=== PATIENT | male | born 1990 | race Caucasian/White ===

== ENCOUNTER → 2016-10-27 | Outpatient (CLI) | payer MEDICAID ==
[~2016-10-27] MED LIST: AMOXICILLIN 50500 MG PO; AMOXIL500 MG PO; BAYER ASPIRIN325 MG PO; MOTRIN800 MG PO; NAPROSYN 500MG500 MG PO; PEN-VK500 MG PO; ULTRACET 325 MG1 TAB PO; VICODIN 7.5/501 EACH PO; VISTARIL25 M1 PO
--- NOTE | 2016-10-27 17:24 | RADIOLOGY REPORT PS360 ---
US SCROTUM HISTORY: Left testicular swelling SCTROTAL SWELLING ORDERING PHYSICIAN: Page Watkins APRN PATIENT AGE: 25 years COMPARISON: None FINDINGS: RIGHT TESTICLE: The right testicle has an unremarkable appearance measuring 3.6 x 2 x 3.5 cm. No testicular mass, hydrocele, or spermatocele, or varicocele evident. Blood flow is noted to the right testicle. LEFT TESTICLE: The left testicle has an unremarkable appearance measuring3.5 x 2.6 x 3 cm. No mass, hydrocele, spermatocele, or varicocele evident. Blood flow is noted to the left testicle. Superior to the left testicle is fat within an inguinal hernia. There is also small amount fluid in what appears to represent peristalsing bowel within the hernia. Recommend CT of the abdomen and pelvis for confirmation. IMPRESSION: 1. Left inguinal hernia which does appear to contain bowel. Suggest confirmation with CT. 2. Otherwise negative testicular ultrasound
== END ==
LOC: RAD 12:09
DX: N50.89 Other specified disorders of the male genital organs (principal)

== ENCOUNTER 2016-11-28 21:34 | Emergency (ER) | payer MEDICAID ==
[~2016-11-28] VITALS: Ht 175.3 cm; Wt 68.6 kg
[2016-11-28] MEDS ORDERED: NOMEDS XX (21:47)
--- NOTE | 2016-11-28 22:34 | Emergency Room Report ---
History of Present Illness Time Seen by 401 Presenting Problem in Triage Pt arrived:Walked Presenting Problem:THINKS HE HAS BEEN HAVING PANIC ATTACKS, STATES HIS SPOUSE TOOK B/P AND WAS HIGH, DOESNT REMEMBER WHAT IT WAS. DIZZINESS, FEELS LIKE HE IS BREATHIN HEAVY. 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 N Clinical Suspician of Infection? N Mental Status: 2 - Mildly Altered Sepsis Risk:Low Sepsis Risk Have you (or family members/close friends) recently traveled outside the [place]? N If Yes, where/when: Have you had exposure to infectious disease within the past month? N TB? Other? Specify: Source patient, RN notes reviewed, old records Exam Limitations no limitations Comment pt with feeling of anxiety and presents for eval - nonspecific etiology and he has no suicidial thoughts Cardiac Chest Pain Chest pain indicative of cardiac No Timing/Duration this evening Severity moderate ALLERGIES Coded Allergies: No Known Allergies (11/11/16) Home Medications Active Scripts Penicillin V Potassium (Pen-Vk 500MG) 500 MG PO Q6 #40 TAB Prov: 04/29/14 Reported Medications Amoxicillin Trihydrate (Amoxicillin 500MG) 500 MG PO BID No Home Medications (NO HOME MEDICATIONS) 1 EACH XX ONCE History Medical History General CAD? No Angina: No NE: No Hypertension? No Hyperlipidemia? No CHF? No COPD? No Asthma? No Anemia? No Hernia? No Thyroid Problems? No CVA? No Seizures? No Diabetes? No End Stage Renal Disease? No UTI? No Stones? No GB Disease: No MRSA? No TB? No Cancer? No Immunization Hx DT/Tetanus UNKNOWN Surgical Hx Previous Surgery?N Social History Smoking Hx Smoker: Current Every Day Smoker Tobacco: Yes Type Cigarettes Packs/day 1 1/2 - 2 Packs Alcohol Alcohol: No Drugs none Additionial History Additional History also worried about his bp Review of Systems All Other Systems Reviewed and Negative Constitutional denies fever Eyes denies drainage ENT denies: ear pain, epistaxis, throat pain. Respiratory denies cough, denies shortness of breath, denies wheezing Cardiovascular denies chest pain, denies palpitations, denies syncope Gastrointestinal denies abdominal pain, denies diarrhea, denies vomiting Genitourinary denies: dysuria, frequency, hesitancy, hematuria. Musculoskeletal denies back pain, denies joint pain, denies joint swelling, denies neck pain Skin denies rash Psychiatric/Neurological see HPI, anxiety, denies seizure Physical Exam Vital Signs Vital Signs Date Time Temp Pulse Resp B/P Pulse O2 O2 Flow FiO2 Ox Delivery Rate 11/28 2136 98.5 87 20 133/98 97 - WBC >12,000 or <4,000 or 10% bands? 2 or more SIRS Criteria Met? B/P:133/98 MAP:109 Creatinine >2.0? UA output<0.5ml/kg/hr for 2 hrs? Platelet count >100,000? Lactate >2.0mmol/1? INR >1.2 or PTT > than 60 sec? Evidence of Organ Dysfunction? Provider documented clinical suspician of infection? N Sepsis Criteria Count: 1 Sepsis Risk: Low Sepsis Risk General Appearance no apparent distress Eye Exam - bilateral eye PERRL, bilateral eye EOMI Ear, Nose, Throat normal ENT inspection Neck supple Respiratory Status No: respiratory distress. Lung Sounds bilateral: lungs clear. Cardiovascular regular rate/rhythm, no gallop, no JVD, no murmur, no rub Peripheral Pulses Pulses normal Yes Gastrointestinal soft Extremities normal inspection Strength 4 Upper Ext (L), 4 Upper Ext (R), 4 Lower Ext (L), 4 Lower Ext (R) Neurologic alert, manager desktop II-XII nml as tested, no motor/sensory deficits Reflexes Reflexes normal Yes Mental status normal mood/affect, insight - fair Skin intact Medical Decision Making LABS/Meds/Orders Pt receiving controlled substance in ED? 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 of ischemic chgs Departure Departure Time of Disposition 2233 Disposition Against Medical Advice Clinical Impression Primary Impression: Anxiety Condition STABLE Patient Instructions DI for Anxiety -- Adult Additional Instructions see pcp for follow up Discharge Counseling Counseled pt/family regarding diagnosis, follow up needs ED Critical Care Critical Care No at [id number]
--- NOTE | 2016-11-28 22:34 | Emergency Room Report ---
History of Present Illness Time Seen by [id number] Presenting Problem in Triage Pt arrived:Walked Presenting Problem:THINKS HE HAS BEEN HAVING PANIC ATTACKS, STATES HIS SPOUSE TOOK B/P AND WAS HIGH, DOESNT REMEMBER WHAT IT WAS. DIZZINESS, FEELS LIKE HE IS BREATHIN HEAVY. 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 N Clinical Suspician of Infection? N Mental Status: 2 - Mildly Altered Sepsis Risk:Low Sepsis Risk Have you (or family members/close friends) recently traveled outside the [place]? N If Yes, where/when: Have you had exposure to infectious disease within the past month? N TB? Other? Specify: Source patient, RN notes reviewed, old records Exam Limitations no limitations Comment pt with feeling of anxiety and presents for eval - nonspecific etiology and he has no suicidial thoughts Cardiac Chest Pain Chest pain indicative of cardiac No Timing/Duration this evening Severity moderate ALLERGIES Coded Allergies: No Known Allergies (11/11/16) Home Medications Active Scripts Penicillin V Potassium (Pen-Vk 500MG) 500 MG PO Q6 #40 TAB Prov: 04/29/14 Reported Medications Amoxicillin Trihydrate (Amoxicillin 500MG) 500 MG PO BID No Home Medications (NO HOME MEDICATIONS) 1 EACH XX ONCE History Medical History General CAD? No Angina: No [place]: No Hypertension? No Hyperlipidemia? No CHF? No COPD? No Asthma? No Anemia? No Hernia? No Thyroid Problems? No CVA? No Seizures? No Diabetes? No End Stage Renal Disease? No UTI? No Stones? No GB Disease: No MRSA? No TB? No Cancer? No Immunization Hx DT/Tetanus UNKNOWN Surgical Hx Previous Surgery?N Social History Smoking Hx Smoker: Current Every Day Smoker Tobacco: Yes Type Cigarettes Packs/day 1 1/2 - 2 Packs Alcohol Alcohol: No Drugs none Additionial History Additional History also worried about his bp Review of Systems All Other Systems Reviewed and Negative Constitutional denies fever Eyes denies drainage ENT denies: ear pain, epistaxis, throat pain. Respiratory denies cough, denies shortness of breath, denies wheezing Cardiovascular denies chest pain, denies palpitations, denies syncope Gastrointestinal denies abdominal pain, denies diarrhea, denies vomiting Genitourinary denies: dysuria, frequency, hesitancy, hematuria. Musculoskeletal denies back pain, denies joint pain, denies joint swelling, denies neck pain Skin denies rash Psychiatric/Neurological see HPI, anxiety, denies seizure Physical Exam Vital Signs Vital Signs Date Time Temp Pulse Resp B/P Pulse O2 O2 Flow FiO2 Ox Delivery Rate 11/28 2136 98.5 87 20 133/98 97 - WBC >12,000 or <4,000 or 10% bands? 2 or more SIRS Criteria Met? B/P:133/98 MAP:109 Creatinine >2.0? UA output<0.5ml/kg/hr for 2 hrs? Platelet count >100,000? Lactate >2.0mmol/1? INR >1.2 or PTT > than 60 sec? Evidence of Organ Dysfunction? Provider documented clinical suspician of infection? N Sepsis Criteria Count: 1 Sepsis Risk: Low Sepsis Risk General Appearance no apparent distress Eye Exam - bilateral eye PERRL, bilateral eye EOMI Ear, Nose, Throat normal ENT inspection Neck supple Respiratory Status No: respiratory distress. Lung Sounds bilateral: lungs clear. 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 of ischemic chgs Departure Departure Time of Disposition 2233 Disposition Against Medical Advice Clinical Impression Primary Impression: Anxiety Condition STABLE Patient Instructions DI for Anxiety -- Adult Additional Instructions see pcp for follow up Discharge Counseling Counseled pt/family regarding diagnosis, follow up needs ED Critical Care Critical Care No at [phone]
[2016-11-28 23:43] VITALS: BP 125/77
--- OUTSIDE RECORDS SUMMARY | 2016-12-04 17:05 | External Medical Summary Rpt | CCD ---
Author Author , FIDENCIO NICOLAS Address Unknown Phone [email or web address] Care Team Providers Care Hair And Makeup Designer Name Role Phone [facility] Unavailable Unavailable [facility], [facility], Unavailable Unavailable [employer] [employer], Unavailable Unavailable [facility] [employer] Unavailable Unavailable [facility], [facility] Un[facility], [facility], Unavailable Unavailable [facility] CHAWLA, CHAWLA Unavailable Unavailable [facility] Unavailable Unavailable TENZIN I, [facility] TENZIN I [facility] Unavailable Unavailable TENZIN I, [facility] TENZIN I GOMEZ BENJAMIN, GOMEZ Unavailable Unavailable BENJAMIN TRUE LOPEZ, TRUE LOPEZ Unavailable Unavailable [facility], Unavailable Unavailable [facility] PJ PALMER, OLIVA Unavailable Unavailable ESTELA Purpose Continuity of Care Document - 03-23-2015 through 2016 Problems Code Diagnosis DOS Provider Status N5089 OTHER 10-27-2016 [facility] OF MALE GENITAL ORGANS Z113 ENCOUNTER 07-08-2016 [facility] INFECTIONS TENZIN I SEXL MODE TRANSMISSN V67660 OTHER LONG 06-13-2016 COMPLIANCE TERM ADVANTAGE CURRENT DRUG THERAPY S99027 PAIN IN 06-09-2016 [facility] RIGHT [facility]NEE [facility] INC [id number] PAIN IN 06-09-2016 [facility] LEFT KNEE STICS INC [id number] STRN UNS 05-08-2015 [place] [facility] M&[facility] SHLDR SERV UP ARM LEVL [facility] RT ARM INIT ENC Z049 ENCOUNTER 05-08-2015 [place] [facility] EXAMINATION SERV &OBSERVATIO [facility] N FOR UNS REASON K029 DENTAL 03-23-2015 [facility] UNSPECIFIED K040 PULPITIS 03-23-2015 [facility] Z720 TOBACCO USE 03-23-2015 [facility] Medications Na ND Rx Da Fi Fi Am Da Di Ph RX Ph St me C No te ll ll ou ys ag ar # ys at rm s nt no ma ic us Or Da si cy ia de te s n re d BU 00 09 09 14 7 00 CA Ac OH 05 -0 -2 .0 00 RL ti EN 40 1- 9- 00 00 IS ve OR 18 20 20 78 LE PH 91 17 [address] Saumya FAN AL S OX ON 8- 2 MG SL BU 00 08 09 14 7 00 CA Ac OH 05 -2 -2 .0 00 RL ti EN 40 6- 2- 00 00 IS ve OR 18 20 20 77 LE PH 91 17 [address] Saumya FAN AL S OX ON 8- 2 MG SL BU 00 07 07 28 14 00 CA Ac OH 05 -0 -2 .0 00 RL ti EN 40 3- 8- 00 00 IS ve OR 18 20 20 77 LE PH 91 17 17 [address] Saumya FAN AL S OX ON 8- 2 MG SL BU 00 04 05 14 7 00 KR Ac OH 22 -1 -1 .0 00 OG ti EN 83 5- 2- 00 04 ER ve OR 15 20 20 57 PH 57 17 17 92 PH IN 3 21 AR -N MA AL CY OX ON L4 07 8- 2 MG SL NA 65 04 05 60 30 00 WA Ac OH 16 -1 -0 .0 00 L ti OX 20 0- 5- 00 07 MA ve EN 19 20 20 49 RT 01 17 17 34 50 1 02 PH 0 AR MG MA CY TA BL 10 ET -2 78 3 CI 54 04 05 30 30 00 WA Ac TA 45 -1 -0 .0 00 L ti LO 80 0- 5- 00 07 MA ve OH 98 20 20 49 RT AM 01 17 17 34 0 03 PH HB AR R MA 20 CY MG 10 -2 TA 78 BL 3 ET HY 16 04 05 60 [address] 71 -1 -0 .0 00 L ti OX 40 0- 5- 00 07 MA ve YZ 08 20 20 49 RT IN 31 17 17 34 E 0 04 PH HC AR L MA 50 CY MG 10 -2 TA 78 BL 3 ET Results Labs Lab Lab Date Result Refere Interp Status Commen Order Detail nces retati t Range on Urinalysis dipstick W Reflex Microscopic panel in Urine (11-11-2016 08:00) Bacteri TRACE O complet a 017 ed [Presen 08:00 ce] in Urine sedimen t by Light microsc opy Mucus 2+ NONE complet [Presen 017 ed ce] in 08:00 Urine sedimen t by Light microsc opy Erythro OCC 0 complet cytes 017 ed [Presen 08:00 ce] in Urine sedimen t by Light microsc opy Epithel 11-11- OCC OCC complet ial 017 ed cells.s 08:00 quamous [Presen ce] in Urine sedimen t by Microsc opy high power field Urinalysis dipstick W Reflex Microscopic panel in Urine (11-11-2016 08:00) Appeara CLEAR CLEAR complet nce of 017 ed Urine 08:00 Bilirub NEGATIV NEG complet in 017 E ed [Presen 08:00 ce] in Urine by Test strip Erythro NEGATIV NEG complet cytes 017 E ed [Presen 08:00 ce] in Urine Color YELLOW YELLOW complet of 017 ed Urine 08:00 Ketones NEGATIV NEG complet 017 E ed [Presen 08:00 ce] in Urine by Automat ed test strip Mucus NEGATIV NEG complet [Presen 017 E ed ce] in 08:00 Urine sedimen t by Light microsc opy Nitrite NEGATIV NEG complet 017 E ed [Presen 08:00 ce] in Urine by Test strip Urobili 1.0 NEG complet nogen 017 ed [Presen 08:00 ce] in Urine by Test strip CHLAMYDIA AND GONORRHEA TESTING (07-08-2016 08:00) Chlamyd NEGATIV complet ia 017 E ed trachom 08:00 atis rRNA [Presen ce] in Unspeci fied specime n by Probe & target amplifi cation method Neisser NEGATIV complet ia 017 E ed gonorrh 08:00 oeae rRNA [Presen ce] in Unspeci fied specime n by Probe & target amplifi cation method CHLAMYDIA AND GONORRHEA TESTING (07-08-2016 08:00) COLLECT TV complet OR 017 ed 08:00 ETHNICI WHITE, complet TY 017 NON-HIS ed 08:00 PANIC KIT 31-2 complet EXPIRAT 017 017 ed ION 08:00 DATE SYMPTOM NO complet S 017 ed 08:00 REASON VOLUNTE complet FOR 017 ER/MEDI ed REQUEST 08:00 MALLORY PROBLEM SPECIME URINE complet N 017 ed SOURCE 08:00 PREGNAN NO complet T 017 ed 08:00 CHART [id number] complet NUMBER 017 ed 08:00 Chlamyd Pending complet ia 017 ed trachom 08:00 atis rRNA [Presen ce] in Unspeci fied specime n by Probe & target amplifi cation method Neisser Pending complet ia 017 ed gonorrh 08:00 oeae rRNA [Presen ce] in Unspeci fied specime n by Probe & target amplifi cation method Procedures Procedure DOS Code Location Performer Comment 63094 [facility] IADNA 00821 [facility] 7 DIAGNOSTI DIAGNOSTI CS CS VAGINALIS TENZIN TENZIN I I AMPLIFIED PROBE TECH DRUG TEST G0480 COMPLIANC COMPLIANC DEFINITV 7 E E ID ADVANTAGE ADVANTAGE METH P DAY 1-7 DRUG CL RADIOLOGI 12449 NE[facility]ODIAG [facility] C 7 NOSTICS EXAMINATI INC ON KNEE 3 VIEWS RADEX 14536 [place] TRUE LOPEZ SHOULDER 6 MEDICAL COMPLETE SERV MINIMUM 2 FOUNDATIO VIEWS N Encounters Encounter Start End Date Code Location Performer Type Date [facility]LA - 7 [facility] OUTPATIEN INC T EMERGENCY 18394 REBECCA GOMEZ 6 6 MEDICAL BENJAMIN DEPARTMEN SERV T VISIT FOUNDATIO MODERATE N SEVERITY EMERGENCY 93946 NAMRATA OLIVA 6 6 ANA ESTELA DEPARTMEN EMERGENCY T VISIT PHYS MODERATE SEVERITY EMERGENCY 06414 UNIVERSIT 6 6 Y [facility] T VISIT LOW/MODER SEVERITY [facility]
--- OUTSIDE RECORDS SUMMARY | 2016-12-04 17:05 | External Medical Summary Rpt | CCD ---
Author Author , FIDENCIO NICOLAS Address Unknown Phone [email or web address] Care Team Providers Care Interlibrary Loan Services Librarian Name Role Phone [facility] Unavailable Unavailable HEALTH C, [facility] [employer] [employer], Unavailable Unavailable [...] BENJAMIN TRUE LOPEZ, TRUE LOPEZ Unavailable Unavailable [facility], Unavailable Unavailable [facility] PJ PALMER, OLIVA Unavailable Unavailable ESTELA Purpose Continuity of Care Document - 03-23-2015 through 2016 Problems Code Diagnosis DOS Provider Status N5089 OTHER 10-27-2016 [facility] OF MALE GENITAL ORGANS Z113 ENCOUNTER 07-08-2016 [facility] INFECTIONS TENZIN I SEXL MODE TRANSMISSN Q04933 OTHER LONG 06-13-2016 COMPLIANCE TERM ADVANTAGE CURRENT DRUG THERAPY I06579 PAIN IN 06-09-2016 [facility] RIGHT [facility] INC V00823 PAIN IN 06-09-2016 [facility] LEFT KNEE STICS INC [id number] STRN UNS 05-08-2015 [place] [facility] M&T SHLDR SERV UP ARM LEVL [facility] RT ARM INIT ENC Z049 ENCOUNTER 05-08-2015 [place] [facility] EXAMINATION SERV &OBSERVATIO [facility] N FOR UNS REASON K029 DENTAL 03-23-2015 [facility]ICE UNSPECIFIED K040 PULPITIS 03-23-2015 [facility] Z720 TOBACCO USE 03-23-2015 [facility] Medications Na ND Rx Da Fi Fi Am Da Di Ph RX Ph St me C No te ll ll ou ys ag ar # ys at rm s nt no ma ic us Or Da si cy ia de te s n re d BU 00 09 09 14 7 00 CA Ac [place] 05 -0 -2 .0 00 RL ti EN 40 1- 9- 00 00 IS ve OR 18 20 20 78 LE PH 91 17 17 [address] Saumya FAN AL S OX ON 8- 2 MG SL BU 00 08 09 14 7 00 CA Ac WV 05 -2 -2 .0 00 RL ti EN 40 6- 2- 00 00 IS ve OR 18 20 20 77 LE PH 91 17 [address] Saumya FAN AL S OX ON 8- 2 MG SL BU 00 07 07 28 14 00 CA Ac WV 05 -0 -2 .0 00 RL ti EN 40 3- 8- 00 00 IS ve OR 18 20 20 77 LE PH 91 17 17 [address] Saumya FAN AL S OX ON 8- 2 MG SL BU 00 04 05 14 7 00 KR Ac WV 22 -1 -1 .0 00 OG ti EN 83 5- 2- 00 04 ER ve OR 15 20 20 57 PH 57 17 17 92 PH IN 3 21 AR -N MA AL CY OX ON L4 07 8- 2 MG SL NA 65 04 05 60 30 00 WA Ac WV 16 -1 -0 .0 00 L ti [...] 80 0- 5- 00 07 MA ve WV 98 20 20 49 RT AM 01 [...] NO complet T 017 ed 08:00 CHART [id number] complet NUMBER 017 ed 08:00 Chlamyd Pending complet ia 017 ed trachom 08:00 atis rRNA [Presen ce] in Unspeci fied specime n by Probe & target amplifi cation method Neisser Pending complet ia 017 ed gonorrh 08:00 oeae rRNA [Presen ce] in Unspeci fied specime n by Probe & target amplifi cation method Procedures Procedure DOS Code Location Performer Comment 10794 [facility] IADNA 60569 [facility] 7 DIAGNOSTI DIAGNOSTI CS CS VAGINALIS TENZIN TENZIN I I AMPLIFIED PROBE TECH DRUG TEST G0480 COMPLIANC COMPLIANC DEFINITV 7 E E ID ADVANTAGE ADVANTAGE METH P DAY 1-7 DRUG CL RADIOLOGI 30180 NEUR[facility]IAG [facility] C 7 NOSTICS EXAMINATI INC ON KNEE 3 VIEWS RADEX 97961 [place] TRUE LOPE[place] SHOULDER 6 MEDICAL COMPLETE SERV MINIMUM 2 FOUNDATIO VIEWS N Encounters Encounter Start End Date Code Location Performer Type Date [facility]LA - 7 [facility] HOSP OUTPATIEN INC T EMERGENCY 30562 REBECCA GOMEZ 6 6 MEDICAL BENJAMIN DEPARTMEN SERV T VISIT FOUNDATIO MODERATE N SEVERITY EMERGENCY 18915 NAMRATA OLIVA 6 6 ANA SETELA DEPARTMEN EMERGENCY T VISIT PHYS MODERATE SEVERITY EMERGENCY 08982 UNIVERSIT 6 6 Y [facility] T VISIT LOW/MODER SEVERITY [facility]PITAL [facility]
--- OUTSIDE RECORDS SUMMARY | 2016-12-04 17:06 | External Medical Summary Rpt | CCD ---
Demographics Preferred Language Lao Marital Status Unknown Rastafari Affiliation Unknown Race Unknown Ethnic Group Unknown Author Author , AGUSTINA NICOLAS Address Unknown Phone Immunization Unable to retrieve immunization data due to connection failure with Immunization Registry. Please try again later.
--- OUTSIDE RECORDS SUMMARY | 2016-12-04 17:06 | External Medical Summary Rpt | CCD ---
Author Author , FIDENCIO NICOLAS Address Unknown Phone [email or web address] Care Team Providers Care Instructor Substitute Cosmetology Name Role Phone [facility] Unavailable Unavailable [facility], [facility] COMPLIANCE ADVANTAGE, Unavailable [...] BENJAMIN TRUE LOPEZ, TRUE LOPEZ Unavailable Unavailable [facility], Unavailable Unavailable [facility] PJ PALMER, PJ Unavailable Unavailable ESTELA Purpose Continuity of Care Document - 03-23-2015 through 2016 Problems Code Diagnosis DOS Provider Status N5089 OTHER 10-27-2016 [facility] SPECIFIED [facility] OF MALE GENITAL ORGANS Z113 ENCOUNTER 07-08-2016 [facility] INFECTIONS TENZIN I SEXL MODE TRANSMISSN S82416 OTHER LONG 06-13-2016 COMPLIANCE TERM ADVANTAGE CURRENT DRUG THERAPY A14366 PAIN IN 06-09-2016 [facility] RIGHT KNEE STICS INC S94585 PAIN IN 06-09-2016 [facility]URODIAGNO LEFT KNEE STICS INC [id number] STRN UNS 05-08-2015 [facility] SHLDR SERV UP ARM [facility]EVL [facility] RT ARM INIT ENC Z049 ENCOUNTER 05-08-2015 [facility] EX[facility] &OBSERVATIO [facility] N FOR UNS REASON K029 DENTAL 03-23-2015 [facility] UNSPECIFIED K040 PULPITIS 03-23-2015 [facility] Z720 TOBACCO USE 03-23-2015 [facility] Medications Na ND Rx Da Fi Fi Am Da Di Ph RX Ph St me C No te ll ll ou ys ag ar # ys at rm s nt no ma ic us Or Da si cy ia de te s n re d BU 00 09 09 14 7 00 CA Ac [place] 05 -0 -2 .0 00 RL ti EN 40 03-02- 00 00 IS ve OR 18 20 20 78 LE PH 91 17 17 [address] Saumya UG AL S OX ON 8- 2 MG SL BU 00 08 09 14 7 00 CA Ac [place] 05 -2 -2 .0 00 RL ti EN 40 6- 2- 00 00 IS ve OR 18 20 20 77 LE PH 91 17 [address] Kerns UG AL S OX ON 8- 2 MG SL BU 00 07 07 28 14 00 CA Ac [place] 05 -0 -2 .0 00 RL ti EN 40 3- 8- 00 00 IS ve OR 18 20 20 77 LE PH 91 17 17 [address] Saumya FAN AL S OX ON 8- 2 MG SL BU 00 04 05 14 7 00 KR Ac [place] 22 -1 -1 .0 00 OG ti EN 83 5- 2- 00 04 ER ve OR 15 20 20 57 PH 57 17 17 92 PH IN 3 21 AR -N MA AL CY OX ON L4 07 8- 2 MG SL NA 65 04 05 60 30 00 WA Ac [place] 16 -1 -0 .0 00 L ti [...] 80 0- 5- 00 07 MA ve [place] 98 20 20 49 RT AM 01 [...] 10 -2 TA 78 BL 3 ET Procedures Procedure [place] [address] KARLA ACOSTA SCROTUM & 7 [facility] CONTENTS [facility] INC IADNA 75372 [facility] 7 DIAGNOSTI DIAGNOSTI CS CS VAGINALIS TENZIN DAVE I I AMPLIFIED PROBE TECH DRUG TEST G0480 COMPLIANC COMPLIANC DEFINITV [address] ID ADVANTAGE ADVANTAGE METH P DAY 1-7 DRUG CL RADIOLOGI 81863 NEURODIAG CHAWLA C 7 NOSTICS EXAMINATI INC ON KNEE 3 VIEWS RADEX 91778 REBECCA TRUE LOPEZ SHOULDER 6 MEDICAL COMPLETE SERV MINIMUM 2 FOUNDATIO VIEWS N Encounters Encounter Start End Date Code Location Performer Type Date [facility] KARLA - 7 7 [facility] T EMERGENCY [address] REBECCA GOMEZ 6 6 MEDICAL [place] DEPARTMEN SERV T VISIT FOUNDATIO MODERATE N SEVERITY EMERGENCY 77656 [facility] 6 6 ANA ESTELA DEPARTMEN EMERGENCY T VISIT PHYS MODERATE SEVERITY EMERGENCY [address] [facility] T VISIT LOW/MODER SEVERITY HOSPITAL UNIVERSIT - 6 6 Y [facility] T
--- OUTSIDE RECORDS SUMMARY | 2016-12-04 17:06 | External Medical Summary Rpt ---
Author Author PRAVEENKYMBERLY Lacey, FIDENCIO Production Organization [employer] Address Unknown Phone Unavailable Results Urinalysis dipstick W Reflex Microscopic panel in Urine Observa Value Referen Units Interpr Notes Date tion ce etation Range COMMENTS TO FRUIT AND VEGETABLE PARER: RODRIGES CATHETER INSERTION Collected by nurse? Y Hold specimen in OE? N Appeara CLEAR CLEAR No No No Sep 20 nce of informa informa informa 2017 Urine tion in tion in tion in 8:00 AM source source source data data data Bacteri TRACE O No No No Sep 20 a informa informa informa 2017 [Presen tion in tion in tion in 8:00 AM ce] in source source source Urine data data data sedimen t by Light microsc opy Bilirub NEGATIV NEG No No No Sep 20 in E informa informa informa 2017 [Presen tion in tion in tion in 8:00 AM ce] in source source source Urine data data data by Test strip Erythro NEGATIV NEG No No No Sep 20 cytes E informa informa informa 2017 [Presen tion in tion in tion in 8:00 AM ce] in source source source Urine data data data Color YELLOW YELLOW No No No Sep 20 of informa informa informa 2017 Urine tion in tion in tion in 8:00 AM source source source data data data Glucose NEG No No No Sep 20 [Mass/vol informati informati informati 2017 8:00 ume] in on in on in on in AM Urine by source source source Test data data data strip Ketones NEGATIV NEG mg/dL No No Sep 20 E informa informa 2017 [Presen tion in tion in 8:00 AM ce] in source source Urine data data by Automat ed test strip Mucus NEGATIV NEG No No No Sep 20 [Presen E informa informa informa 2016 ce] in tion in tion in tion in 8:00 AM Urine source source source sedimen data data data t by Light microsc opy Mucus 2+ NONE No No No Sep 20 [Presen informa informa informa 2017 ce] in tion in tion in tion in 8:00 AM Urine source source source sedimen data data data t by Light microsc opy Nitrite NEGATIV NEG No No No Sep 20 E informa informa informa 2017 [Presen tion in tion in tion in 8:00 AM ce] in source source source Urine data data data by Test strip pH of 5.0 - 8.5 No Normal No Sep 20 Urine informati informati 2017 8:00 on in on in AM source source data data Protein NEG mg/dL No No Sep 20 [Mass/vol informati informati 2017 8:00 ume] in on in on in AM Urine by source source Automated data data test strip Erythro OCC 0 rbc/hpf No No Sep 20 cytes informa informa 2017 [Presen tion in tion in 8:00 AM ce] in source source Urine data data sedimen t by Light microsc opy Specific 1.005 - No Normal No Sep 20 gravity 1.030 informati informati 2017 8:00 of Urine on in on in AM source source data data Epithel OCC OCC #/hpf No No Sep 20 ial informa informa 2017 cells.s tion in tion in 8:00 AM quamous source source data data [Presen ce] in Urine sedimen t by Microsc opy high power field Urobili 1.0 NEG E.U./dL No No Sep 20 nogen informa informa 2017 [Presen tion in tion in 8:00 AM ce] in source source Urine data data by Test strip Leukocyte O wbc/hpf No No Sep 20 s informati informati 2017 8:00 [#/volume on in on in AM ] in source source Urine data data Urinalysis dipstick W Reflex Microscopic panel in Urine Observa Value Referen Units Interpr Notes Date tion ce etation Range COMMENTS TO FRUIT AND VEGETABLE PARER: RODRIGES CATHETER INSERTION Collected by nurse? Y Hold specimen in OE? N Appeara CLEAR CLEAR No No No Sep 20 nce of informa informa informa 2017 Urine tion in tion in tion in 8:00 AM source source source data data data Bilirub NEGATIV NEG No No No Sep 20 in E informa informa informa 2017 [Presen tion in tion in tion in 8:00 AM ce] in source source source Urine data data data by Test strip Erythro NEGATIV NEG No No No Sep 20 cytes E informa informa informa 2016 [Presen tion in tion in tion in 8:00 AM ce] in source source source Urine data data data Color YELLOW YELLOW No No No Sep 20 of informa informa informa 2016 Urine tion in tion in tion in 8:00 AM source source source data data data Glucose NEG No No No Sep 20 [Mass/vol informati informati informati 2016 8:00 ume] in on in on in on in AM Urine by source source source Test data data data strip Ketones NEGATIV NEG mg/dL No No Sep 20 E informa informa 2016 [Presen tion in tion in 8:00 AM ce] in source source Urine data data by Automat ed test strip Mucus NEGATIV NEG No No No Sep 20 [Presen E informa informa informa 2016 ce] in tion in tion in tion in 8:00 AM Urine source source source sedimen data data data t by Light microsc opy Nitrite NEGATIV NEG No No No Sep 20 E informa informa informa 2016 [Presen tion in tion in tion in 8:00 AM ce] in source source source Urine data data data by Test strip pH of 5.0 - 8.5 No Normal No Sep 20 Urine informati informati 2017 8:00 on in on in AM source source data data Protein NEG mg/dL No No Sep 20 [Mass/vol informati informati 2016 8:00 ume] in on in on in AM Urine by source source Automated data data test strip Specific 1.005 - No Normal No Sep 20 gravity 1.030 informati informati 2017 8:00 of Urine on in on in AM source source data data Urobili 1.0 NEG E.U./dL No No Sep 20 nogen informa informa 2016 [Presen tion in tion in 8:00 AM ce] in source source Urine data data by Test strip Basic metabolic panel in Blood Observa Value Referen Units Interpr Notes Date tion ce etation Range Urea 7 - 18 mg/dL Normal No Sep 12 nitrogen informati 2016 [Mass/vol on in 12:35 PM ume] in source Serum or data Plasma Calcium 8.5 - mg/dL Normal No Sep 12 [Mass/vol 10.1 informati 2017 ume] in on in 12:35 PM Serum or source Plasma data Chloride 98 - 107 mmoL/L Normal No Sep 12 [Moles/vo informati 2017 lume] in on in 12:35 PM Serum or source Plasma data Carbon 21.0 - mmoL/L Normal No Sep 12 dioxide, 32.0 informati 2017 total on in 12:35 PM [Moles/vo source lume] in data Serum or Plasma Creatinin 0.70 - mg/dL Low No Sep 12 e 1.30 informati 2017 [Mass/vol on in 12:35 PM ume] in source Serum or data Plasma Estimated >60 ML/MIN No REFERENCE Sep 12 informati RANGE: 2017 glomerula on in >60 12:35 PM r source ML/MIN/1. filtratio data 73 SQUARE n rate METERSIf (GF this patient is -A merican, then multiply theresult by 1.210. Glucose 74 - 106 mg/dL Low No Sep 12 [Mass/vol informati 2017 ume] in on in 12:35 PM Serum or source Plasma data Potassium 3.5 - 5.1 mmoL/L Normal No Sep 12 inform 2017 [Moles/vo on in 12:35 PM lume] in source Serum or data Plasma Sodium 136 - 145 mmoL/L Normal No Sep 12 [Moles/vo informati 2017 lume] in on in 12:35 PM Serum or source Plasma data CBC W Auto Differential panel in Blood Observa Value Referen Units Interpr Notes Date tion ce etation Range Basophils 0 - 0.2 K/MM3 Normal No Sep 12 informati 2016 [#/volume on in 12:35 PM ] in source Blood by data Automated count Basophils 0.1 - 2.0 % Normal No Sep 12 /100 informati 2016 leukocyte on in 12:35 PM s in source Blood by data Automated count Eosinophi 0.0 - 0.4 K/mm3 Normal No Sep 12 ls informati 2016 [#/volume on in 12:35 PM ] in source Blood by data Automated count Eosinophi 0.1 - % Normal No Sep 12 ls/100 12.0 informati 2016 leukocyte on in 12:35 PM s in source Blood by data Automated count Granulocy 1.3 - 8.0 K/mm3 Normal No Sep 12 chari informati 2016 [#/volume on in 12:35 PM ] in source Blood by data Automated count Granulocy 37.0 - % Normal No Sep 12 chari/100 80.0 informati 2016 leukocyte on in 12:35 PM s in source Blood by data Automated count Hematocri 42.0 - % Normal No Sep 12 t [Volume 52.0 informati 2017 on in 12:35 PM Fraction] source of Blood data Hemoglobi 14.1 - g/dL Normal No Sep 12 n 18.0 informati 2017 [Mass/vol on in 12:35 PM ume] in source Blood data Lymphocyt 0.7 - 4.5 K/mm3 Normal No Sep 12 es informati 2016 [#/volume on in 12:35 PM ] in source Unspecifi data ed specimen by Automated count Lymphocyt 10 - 50 % Normal No Sep 12 es informati 2016 [#/volume on in 12:35 PM ] in source Unspecifi data ed specimen by Automated count Erythrocy 27 - 31.2 pg Normal No Sep 12 te mean inform2016 corpuscul on in 12:35 PM ar source hemoglobi data n [Entitic mass] Erythrocy 31.8 - g/dl Normal No Sep 12 te mean 35.4 informati 2016 corpuscul on in 12:35 PM ar source hemoglobi data n concentra tion [Mass/vol ume] by Automated count Erythrocy 82.2 - fl Normal No Sep 12 te mean 97.8 informati 2016 corpuscul on in 12:35 PM ar volume source [Entitic data volume] by Automated count Monocytes 0.1 - 1.0 K/mm3 Normal No Sep 12 inform2016 [#/volume on in 12:35 PM ] in source Blood by data Automated count Monocytes 1.7 - 9.3 % Normal No Sep 12 /100 inform2016 leukocyte on in 12:35 PM s in source Blood by data Automated count Platelet 7.4 - fl Normal No Sep 12 mean 10.4 informati 2017 volume on in 12:35 PM [Entitic source volume] data in Blood by Automated count Platelets 142 - 424 K/mm3 Low No Sep 12 informati 2016 [#/volume on in 12:35 PM ] in source Blood data Erythrocy 4.6 - 6.2 M/mm3 Normal No Sep 12 chari informati 2017 [#/volume on in 12:35 PM ] in source Amniotic data fluid Erythrocy 11.5 - % Normal No Sep 12 te 17.5 informati 2017 distribut on in 12:35 PM ion width source [Entitic data volume] by Automated count Leukocyte 4.8 - K/MM3 Normal No Sep 12 s 10.8 informati 2016 [#/volume on in 12:35 PM ] in source Blood data CHLAMYDIA AND GONORRHEA TESTING Observa Value Referen Units Interpr Notes Date tion ce etation Range COLLECT TV No No No No July 08 OR informa informa informa informa 2017 tion in tion in tion in tion in 8:00 AM source source source source data data data data ETHNICI WHITE, No No No No July 08 TY NON-HIS informa informa informa informa 2017 PANIC tion in tion in tion in tion in 8:00 AM source source source source data data data data KIT 08-31-2 No No No No July 08 EXPIRAT 017 informa informa informa informa 2017 ION tion in tion in tion in tion in 8:00 AM DATE source source source source data data data data SYMPTOM NO No No No No July 08 S informa informa informa informa 2017 tion in tion in tion in tion in 8:00 AM source source source source data data data data REASON VOLUNTE No No No No July 08 FOR ER/MEDI informa informa informa informa 2017 REQUEST MALLORY tion in tion in tion in tion in 8:00 AM PROBLEM source source source source data data data data SPECIME URINE No No No No July 08 N informa informa informa informa 2017 SOURCE tion in tion in tion in tion in 8:00 AM source source source source data data data data PREGNAN NO No No No No July 08 T informa informa informa informa 2017 tion in tion in tion in tion in 8:00 AM source source source source data data data data CHART [id number] No No No No July 08 NUMBER informa informa informa informa 2017 tion in tion in tion in tion in 8:00 AM source source source source data data data data Chlamyd NEGATIV No No No NEGATIV July 08 ia E informa informa informa E 2017 trachom tion in tion in tion in RESULT= 8:00 AM atis source source source WITHIN rRNA data data data NORMAL [Presen ce] in LIMITSP Unspeci OSITIVE fied specime RESULT= n by Probe & ABNORMA target LEQUIVO MALLORY amplifi RESULT= cation method INDETER MINATEU NSATISF ACTORY RESULT= INVALID Neisser NEGATIV No No No NEGATIV July 08 ia E informa informa informa E 2017 gonorrh tion in tion in tion in RESULT= 8:00 AM oeae source source source WITHIN rRNA data data data NORMAL [Presen ce] in LIMITSP Unspeci OSITIVE fied specime RESULT= n by Probe & ABNORMA target LEQUIVO MALLORY amplifi RESULT= cation method INDETER MINATEU NSATISF ACTORY RESULT= INVALID THE APTIMA COMBO 2 ASSAY IS NOT INTENDE D FOR THE EVALUAT ION OF SUSPECT EDSEXUA L ABUSE OR FOR OTHER MEDICO- LEGAL INDICAT IONS. FOR THOSE PATIENT S FORWHOM A FALSE POSITIV E RESULT MAY HAVE ADVERSE PSYCHO- SOCIAL IMPACT, [facility] MMENDS RETESTI NG.\.br \This report contain s patient informa tion that must be protect ed in accorda nce with the Health Insuran ce Portabi lity and Account ability Act. CHLAMYDIA AND GONORRHEA TESTING Observa Value Referen Units Interpr Notes Date tion ce etation Range COLLECT TV No No No No July 08 OR informa informa informa informa 2017 tion in tion in tion in tion in 8:00 AM source source source source data data data data ETHNICI WHITE, No No No No July 08 TY NON-HIS informa informa informa informa 2017 PANIC tion in tion in tion in tion in 8:00 AM source source source source data data data data KIT 08-31-2 No No No No July 08 EXPIRAT 017 informa informa informa informa 2017 ION tion in tion in tion in tion in 8:00 AM DATE source source source source data data data data SYMPTOM NO No No No No July 08 S informa informa informa informa 2017 tion in tion in tion in tion in 8:00 AM source source source source data data data data REASON VOLUNTE No No No No July 08 FOR ER/MEDI informa informa informa informa 2017 REQUEST MALLORY tion in tion in tion in tion in 8:00 AM PROBLEM source source source source data data data data SPECIME URINE No No No No July 08 N informa informa informa informa 2017 SOURCE tion in tion in tion in tion in 8:00 AM source source source source data data data data PREGNAN NO No No No No July 08 T informa informa informa informa 2017 tion in tion in tion in tion in 8:00 AM source source source source data data data data CHART [id number] No No No No July 08 NUMBER informa informa informa informa 2017 tion in tion in tion in tion in 8:00 AM source source source source data data data data Chlamyd Pending No No No No July 08 ia informa informa informa informa 2017 trachom tion in tion in tion in tion in 8:00 AM atis source source source source rRNA data data data data [Presen ce] in Unspeci fied specime n by Probe & target amplifi cation method Neisser Pending No No No \.br\July 08 ia informa informa informa is 2017 gonorrh tion in tion in tion in report 8:00 AM oeae source source source contain rRNA data data data s [Presen patient ce] in Unspeci informa fied tion specime that n by must be Probe & target protect ed in amplifi accorda cation nce method with the Health Insuran ce Portabi lity and Account ability Act.
--- OUTSIDE RECORDS SUMMARY | 2016-12-04 17:06 | External Medical Summary Rpt | CCD ---
Demographics Preferred Language Bengali Marital Status Unknown Uatsdin Affiliation Unknown Race Unknown Ethnic Group Unknown Author Author , AGUSTINA NICOLAS Address Unknown Phone Immunization Unable to retrieve immunization data due to connection failure with Immunization Registry. Please try again later.
--- OUTSIDE RECORDS SUMMARY | 2016-12-04 17:06 | External Medical Summary Rpt | CCD ---
Author Author , FIDENCIO NICOLAS Address Unknown Phone [email or web address] Care Team Providers Care Cardroom Manager Name Role Phone [facility] COMPLIANCE ADVANTAGE, Unavailable Unavailable COMPLIANCE [...] LOPEZ Unavailable Unavailable [facility], Unavailable Unavailable [facility] PJ PALMER, PJ Unavailable Unavailable ESTELA Purpose Continuity of Care Document - 03-23-2015 through 2016 Problems Code Diagnosis DOS Provider Status N5089 OTHER 10-27-2016 [facility] SPECIFIED [facility] DISORD[facility] OF MALE GENITAL ORGANS Z113 ENCOUNTER 07-08-2016 [facility] INFECTIONS TENZIN I SEXL MODE TRANSMISSN [id number] OTHER LONG 06-13-2016 COMPLIANCE TERM ADVANTAGE CURRENT DRUG THERAPY M93999 PAIN IN 06-09-2016 [facility]UR[facility]NO RIGHT KNEE STICS INC X79715 PAIN IN 06-09-2016 NEURODIAGNO LEFT KNEE STICS INC [id number] STRN UNS 05-08-2015 [facility] UP ARM LEVL [facility] RT ARM INIT ENC Z049 ENCOUNTER 05-08-2015 [facility] &OBSERVATIO [facility] N FOR UNS REASON K029 DENTAL 03-23-2015 [facility] UNSPECIFIED K040 PULPITIS 03-23-2015 [facility] Z720 TOBACCO USE 03-23-2015 [facility] Medications Na ND Rx Da Fi Fi Am Da Di Ph RX Ph St me C No te ll ll ou ys ag ar # ys at rm s nt no ma ic us Or Da si cy ia de te s n re d BU 00 09 09 14 7 00 CA Ac [place] 05 -0 -2 .0 00 RL ti EN 40 03-02- 00 00 IS ve OR 18 20 20 78 LE PH 91 17 17 [address] Saumya UG AL S OX ON 8- 2 MG SL BU 00 08 09 14 7 00 CA Ac [place] 05 -2 -2 .0 00 RL ti EN 40 6- 2- 00 00 IS ve OR 18 20 20 77 LE PH 91 17 [address] Kerns UG AL S OX ON 8- 2 MG SL BU 00 07 07 28 14 00 CA Ac [place] 05 -0 -2 .0 00 RL ti EN 40 3- 8- 00 00 IS ve OR 18 20 20 77 LE PH 91 17 17 [address] Saumya FAN AL S OX ON 8- 2 MG SL BU 00 04 05 14 7 00 KR Ac [place] 22 -1 -1 .0 00 OG ti EN 83 5- 2- 00 04 ER ve OR 15 20 20 57 PH 57 17 17 92 PH IN 3 21 AR -N MA AL CY OX ON L4 07 8- 2 MG SL NA 65 04 05 60 30 00 WA Ac [place] 16 -1 -0 .0 00 L ti [...] 80 0- 5- 00 07 MA ve [place] 98 20 20 49 RT AM 01 [...] Procedure [place] [address] KARLA ACOSTA SCROTUM & 7 [facility] CONTENTS INC INC IADNA 93908 [facility] 7 DIAGNOSTI DIAGNOSTI CS CS VAGINALIS TENZIN DAVE I I AMPLIFIED PROBE TECH DRUG TEST G0480 COMPLIANC COMPLIANC DEFINITV [address] ID ADVANTAGE ADVANTAGE METH P DAY 1-7 DRUG CL RADIOLOGI 93297 NEURODIAG CHAWLA C 7 NOSTICS EXAMINATI INC ON KNEE 3 VIEWS RADEX 53364 REBECCA TRUE LOPEZ SHOULDER 6 MEDICAL COMPLETE SERV MINIMUM 2 FOUNDATIO VIEWS N Encounters Encounter Start End Date Code Location Performer Type Date [facility] KARLA - 7 7 [facility] T EMERGENCY 91373 REBECCA GOMEZ 6 6 MEDICAL BENJAMIN DEPARTMEN SERV T VISIT FOUNDATIO MODERATE N SEVERITY EMERGENCY [address] [facility] 6 6 ANA ESTELA DEPARTMEN EMERGENCY T VISIT PHYS MODERATE SEVERITY EMERGENCY 12924 [facility] 6 6 Y [facility] T VISIT LOW/MODER SEVERITY HOSPITAL UN[facility]ERSIT - 6 6 Y [facility] T
--- OUTSIDE RECORDS SUMMARY | 2016-12-04 17:06 | External Medical Summary Rpt ---
Author Author PRAVEENKYMBERLY Lacey, FIDENCIO Production Organization [employer] Address Unknown Phone Unavailable Results Urinalysis dipstick W Reflex Microscopic panel in Urine Observa Value Referen Units Interpr Notes Date tion ce etation Range COMMENTS TO PHYSICAL BIOCHEMIST: RODRIGES CATHETER INSERTION Collected by nurse? Y [...] Date tion ce etation Range COMMENTS TO PHYSICAL BIOCHEMIST: RODRIGES CATHETER INSERTION Collected by nurse? Y [...] source source data data data data CHART [id number] No No No No July 08 NUMBER [...] MAY HAVE ADVERSE PSYCHO- SOCIAL IMPACT, [facility] RETESTI NG.\.br \This report contain s [...] source source data data data data CHART [id number] No No No No July 08 NUMBER [...]
== END 2016-11-28 22:40 | disposition left against medical advice (07) ==
LOC: ER 21:34
DX: F41.0 Panic disorder [episodic paroxysmal anxiety] (principal); F17.210 Nicotine dependence, cigarettes, uncomplicated